=== PATIENT | female | born 1965 | race Caucasian/White ===

== ENCOUNTER → 2016-05-30 | Outpatient (CLI) | payer BC ==
--- NOTE | 2016-05-31 10:54 | US ---
EXAMINATION: Bilateral digital mammography utilizing CAD with right breast ultrasound. HISTORY: Lump. Comparison is made to previous studies dated 05/24/2016. FINDINGS: Bilateral LM views obtained and spot compression images obtained in the right CC and MLO projections and the left MLO projection. The previously demonstrated single view asymmetry within the left breast is not characterized follow ing spot compression and likely represents summation artifact. There is an oval well-circumscribed m ass measuring approximately 8 mm noted within the right breast at the approximate 3 o'clock position . Sonographic evaluation of this region demonstrates several oval parallel anechoic nonvascular cyst s measuring 5 to 7 mm. There is likely a dilated duct also noted at the 3 position without an chemical engineering intern al filling defect. IMPRESSION: BI-RADS category II - Benign finding. Continued screening according to ACR-ACS guidelines suggested. THE FALSE-NEGATIVE RATE OF MAMMOGRAM IS APPROXIMATELY 10%. MANAGEMENT OF A PALPABLE ABNORMALITY MUST BE BASED UPON CLINICAL GROUNDS. SENSITIVITY FOR DETECTION OF ABNORMALITIES IN DENSE BREASTS IS LOW. NOTE: A letter will be sent to the patient regarding findings. [facility] -- JUAN Cabello [phone] - FAX [phone]
== END | disposition home or self-care (01) ==
LOC: MW.MAM 10:42
PROVIDERS: ATTEND Surgery
DX: N63 Unspecified lump in breast (principal)
CPT/HCPCS: 76642; G0204

== ENCOUNTER 2016-06-08 08:21 | Day surgery (SDC) | payer BC ==
[~2016-06-08 08:21] MED LIST: Lactated Ringers 1,000 ML IV SCH; Sodium Chloride 0.9% 10 ML Syringe FLUSH PRN; Sodium Chloride 0.9% 2.5 ML Syringe FLUSH PRN
[2016-06-08] MEDS ORDERED: Lidocaine 2% 5 ML SDV ONE (08:40)
[2016-06-08] MEDS ORDERED: Midazolam 1 MG/ML 2 ML SDV ONE (08:41)
[2016-06-08] MEDS ORDERED: Propofol 200 MG/20 ML SDV ONE (08:41)
[2016-06-08] MEDS ORDERED: fentaNYL 100 MCG/2 ML SDV ONE (08:41)
--- NOTE | 2016-06-08 09:14 | PCM.PREANE ---
Preanesthetic Assessment - Anesthesia/Transfusion/Family Hx Anesthesia History: Prior Anesthesia Reaction Type of Anesthesia Reaction: Excessive Nausea/Vomiting Family History of Anesthesia Reaction: No Transfusion History: No Prior Transfusion(s) - Review of Systems General: No Symptoms Pulmonary: No Symptoms Cardiovascular: No Symptoms Neurological: No Symptoms Other: Reports: None - Physical Assessment O2 Sat by Pulse Oximetry: 99 Respiratory Rate: 16 Vital Signs: Last Vital Signs Temp 36.3 C 06/08/16 08:25 Pulse 82 06/08/16 08:25 Resp 16 06/08/16 08:25 BP 114/73 06/08/16 08:25 Pulse Ox 99 06/08/16 08:25 Height: 1.6 m Weight: 61.235 kg ASA Class: 1 Mental Status: Alert & Oriented x3 Airway Class: Mallampati = 2 Dentition: Reports: Normal Dentition Thyro-Mental Finger Breadths: 2 Mouth Opening Finger Breadths: 2 ROM/Head Extension: Full Lungs: Clear to auscultation, Normal respiratory effort Cardiovascular: Regular Rate, Regular Rhythm - Allergies Allergies/Adverse Reactions: Allergies Allergy/AdvReac Type Severity Reaction Status Date / Time Sulfa (Sulfonamide Allergy Other Verified 06/05/16 09:57 Antibiotics) - Blood Blood Available: No - Anesthesia Plan Pre-Op Medication Ordered: None - Acknowledgements Anesthesia Type Planned: MAC Pt an Appropriate Candidate for the Planned Anesthesia: Yes Alternatives and Risks of Anesthesia Discussed w Pt/Guardian: Yes Pt/Guardian Understands and Agrees with Anesthesia Plan: Yes PreAnesthesia Questionnaire HEENT History: Reports: Other (see below) Other HEENT History: wears glasses Gastrointestinal History: Reports: Hepatitis Other Gastrointestinal History: hx hepatitis B at 10 yrs old 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: Endometriosis (h/o endometriosis) Psychiatric History: Reports: Anxiety Oncologic (Cancer) History: Reports: Other (see below) Other Oncologic History: hx melanoma of skin Dermatologic History: Reports: Melanoma () - Past Surgical History Head Surgeries/Procedures: Reports: None GI Surgical History: Reports: Other (see below) Other GI Surgeries/Procedures: had partial colectomy with LAVH due to severe endometriosis Female Surgical History: Reports: Hysterectomy Other Female Surgeries/Procedures: LAVH with partial colectomy Musculoskeletal Surgical History: Reports: Other (see below) Other Musculoskeletal Surgeries/Procedures:: hx left knee surgery x2, anterior and posterior crucite ligament repair Dermatological Surgical History: Reports: Other (see below) - SUBSTANCE USE Smoking Status *Q: Never Smoker Recreational Drug Use History: No - HOME MEDS Home Medications: Home Meds . [No Known Home Meds] 06/06/16 [History] - CURRENT (IN HOUSE) MEDS Current Meds: Current Medications Lactated Ringer's (Ringers, Lactated) 1,000 mls @ 125 mls/hr IV ASDIRECTED LASHON Sodium Chloride (Saline Flush) 10 ml FLUSH ASDIRECTED PRN PRN Reason: Keep Vein Open Sodium Chloride (Saline Flush) 2.5 ml FLUSH ASDIRECTED PRN PRN Reason: Keep Vein Open Discontinued Medications Fentanyl (Sublimaze) Confirm Administered Dose 100 mcg .ROUTE .STK-MED ONE Stop: 06/08/16 08:42 Lidocaine (Xylocaine-Mpf 2%) Confirm Administered Dose 5 ml .ROUTE .STK-MED ONE Stop: 06/08/16 08:41 Midazolam HCl (Versed 1 Mg/Ml) Confirm Administered Dose 2 mg .ROUTE .STK-MED ONE Stop: 06/08/16 08:42 Propofol (Diprivan 20 Ml) Confirm Administered Dose 400 mg .ROUTE .STK-MED ONE Stop: 06/08/16 08:42
--- NOTE | 2016-06-08 11:15 | PCM.OPNOTE ---
- General Post-Op/Procedure Note Date of Surgery/Procedure: 06/08/16 Operative Procedure(s): Colonoscopy Findings: Normal colon. Anastomotic line from previous surgery at the level of the rectum. Pre Op Diagnosis: Colonoscopy Post-Op Diagnosis: same Anesthesia Technique: MAC Primary Surgeon: Sammi Sterling Condition: Good
--- NOTE | 2016-06-08 11:43 | PCM.POSTAN ---
POST ANESTHESIA ASSESSMENT - MENTAL STATUS Mental Status: alert, oriented - RESPIRATORY Respiratory Status: respiratory rate WNL, airway patent, O2 saturation stable - CARDIOVASCULAR CV Status: pulse rate WNL, blood pressure stable - GASTROINTESTINAL GI Status: no symptoms - POST OP HYDRATION Hydration Status: adequate & stable - OBSERVATIONS Free Text/Narrative:: no anesthesia problems
[2016-06-08 12:26] VITALS: BP 107/57
--- NOTE | 2016-06-08 20:30 | OR ---
SURGEON: TOOTIE MEDINA MD DATE OF PROCEDURE: 06/08/2016 PREOPERATIVE DIAGNOSIS: Encounter for screening colonoscopy. POSTOPERATIVE DIAGNOSIS: Encounter for screening colonoscopy. PROCEDURE PERFORMED: Screening colonoscopy. INSTRUMENT USED: Olympus colonoscope. ANESTHESIA: MAC. EXTENT OF EXAM: To the cecum. PREPARATION: Good. LIMITATIONS: None. INDICATIONS: The patient is a 51-year-old female, who presents for first time screening colonoscopy. Her past medical history is significant for a colon resection due to endometriosis. The patient is unsure what portion of the colon was resected. This procedure was done at an outside facility and records are not available. The patient otherwise has been doing well with no changes in her bowel habits. The patient and I discussed the procedure as well as expected perioperative course. We discussed the risks, including bleeding, infection, damage to surrounding structures, including perforation. The patient verbalized understanding and wished to proceed. PROCEDURE IN DETAIL: The patient was brought to the endoscopy suite and placed in a left lateral decubitus position. A time-out was completed verifying the patient's name, age, date of , allergies, and procedure to be performed. Monitored anesthesia care was induced and continuous oxygen was provided via nasal cannula throughout the procedure. After adequate sedation was achieved, a digital rectal exam was performed. This examination was within normal limits. A well-lubricated colonoscope was inserted in the rectum and advanced under direct visualization to the level of cecum. The cecum was identified by both visual and anatomic landmarks. A photograph was taken of the cecal cap as well as with the scope retroflexed within the cecum. The scope was then fully withdrawn while examining the color, texture, anatomy, and integrity of the mucosa from the cecum to the anal canal. A low-lying rectal anastomosis was noted. The anastomosis was intact and there was no evidence of any gross disease around the anastomosis. The scope was then retroflexed within the rectum to allow visualization of the anal canal opening. This appeared normal and a photograph was taken. The scope was then straightened out and removed from the patient. The patient tolerated the procedure well and was transferred to recovery room in stable condition. Cecum to anus time was 10 minutes. ENDOSCOPIC DIAGNOSIS: Normal colonoscopy with a low-lying rectal anastomosis. RECOMMENDATION: Follow up in clinic in 10 years. QUINCY / DINH /[id number]
== END 2016-06-08 12:30 | disposition home or self-care (01) ==
LOC: MW.SDS 08:21
PROVIDERS: ATTEND Surgery
PROC: 0DJD8ZZ Inspection of Lower Intestinal Tract, Via Natural or Artificial Opening Endoscopic (ICD-10-PCS; principal; 2016-06-08)
DX: Z12.11 Encounter for screening for malignant neoplasm of colon (principal); Z85.820 Personal history of malignant melanoma of skin; Z86.19 Personal history of other infectious and parasitic diseases; Z98.0 Intestinal bypass and anastomosis status; Z90.49 Acquired absence of other specified parts of digestive tract; Z98.890 Other specified postprocedural states
CPT/HCPCS: 45378; J2250; J3010; J7120; J2704

== ENCOUNTER → 2016-06-21 | Outpatient (CLI) | payer BC | LOC: MW.CHOBGYN 09:41 | PROVIDERS: ATTEND Nurse Practitioner Women's Health | DX: N94.9 Unspecified condition associated with female genital organs and menstrual cycle (principal) | CPT/HCPCS: 87252; 87254 ==

== ENCOUNTER → 2016-06-22 | Outpatient (CLI) | payer BC | END | disposition home or self-care (01) | LOC: MW.CHOBGYN 08:13 | PROVIDERS: ATTEND Nurse Practitioner Women's Health | DX: R23.8 Other skin changes (principal) | CPT/HCPCS: 36415; 81001; 85025 ==

== ENCOUNTER → 2016-06-23 | Outpatient (CLI) | payer BC | LOC: MW.CHOBGYN 09:05 | PROVIDERS: ATTEND Nurse Practitioner Women's Health | DX: R23.8 Other skin changes (principal) | CPT/HCPCS: 87252; 87254 ==

== ENCOUNTER → 2016-07-10 | Outpatient (CLI) | payer BC | LOC: MW.CHOBGYN 08:07 | PROVIDERS: ATTEND Nurse Practitioner Women's Health | DX: R39.9 Unspecified symptoms and signs involving the genitourinary system (principal) | CPT/HCPCS: 81001 ==